=== PATIENT | female | born 1990 | race African-American/Black ===

== ENCOUNTER 2020-10-25 17:22 | Emergency (ER) | payer OTHER, SELFPAY ==
[2020-10-25 17:54] VITALS: BP 122/77; PULSE 75; RESP 18; TEMP 36.7; O2SAT 99; BMI 18.8
--- NOTE | 2020-10-25 20:04 | ED.ANIMALBIT ---
HPI - Animal Bite General Chief Complaint: Animal Bite Stated Complaint: dog bite Time Seen by Provider: 10/25/20 20:04 Source: patient Mode of arrival: ambulatory Limitations: no limitations History of Present Illness HPI narrative: 29 y/o female presenting with superficial dog bite to her lower lip by her friend's dog last night at 10pm. She reports she thinks the bite went through and through her bottom lip but when she woke up this morning it was no longer patent. She has some lower lip swelling still. No fever or chills. She is not up to date on her tetanus shot. She reports the dog is up to date on all of his shots. complaint: animal bite Onset (ago): day(s) (1) Animal: dog Description of animal: household pet Mechanism: bite Location: face Pain description: dull Severity scale (1-10): 4 Context: playing with animal Associated symptoms: none Treatments prior to arrival: irrigation Related Data Previous Rx's Medication Instructions Recorded amoxicillin 875 mg-potassium 1 tab PO BID #10 tab 10/25/20 clavulanate 125 mg tablet (Augmentin) Allergies Allergy/AdvReac Type Severity Reaction Status Date / Time No Known Allergies Allergy Verified 10/25/20 17:54 Review of Systems Review of Systems: Constitutional: No Fever, No Chills ENT/Mouth: No sore throat, No dental trauma Eyes: No Eye Pain, No Swelling, No Redness Cardiovascular: No Chest Pain, No SOB Respiratory: No Cough, No Sputum Gastrointestinal: No Nausea, No Vomitin Skin: + Skin Lesions, No rash Neuro: No Weakness, No Numbness, No Dizziness, No Headache Heme/Lymph: No Bruising PMFSH Past Medical History Attestation statement: The following information was validated with the patient. Medical History No pertinent past medical history Social History Social History Advance Directives: No Advance Directives Information Provided: Yes Patient : No Physical Exam Vital Signs: Vital Signs: Last Vital Signs Temp 98.0 F 10/25/20 17:54 Pulse 75 10/25/20 17:54 Resp 18 10/25/20 17:54 BP 122/77 10/25/20 17:54 Pulse Ox 99 10/25/20 17:54 Body Mass Index 18.8 Appearance: Alert. Oriented X3. No acute distress. HEENT: left lower lip with mild swelling externally and moderate swelling inside the mouth, 1cm superficial laceration with no visible through and through. 2 small superficial scratches on the left chin and right lower mandible. full jaw ROM, no trismus. no surrounding erythema or warmth. no dental trauma. CVS: Normal heart rate and rhythm. Pulses normal. Respiratory: No respiratory distress. Skin: Skin warm and dry. Normal skin color. Normal skin turgor. No rashes. Extremities: atraumatic, no bites or scratches on the extremities. Neuro: Oriented X 3. No motor deficit. No sensory deficit. Course Course Course Narrative: 29 yo female presenting with superficial dog bite to the left lower lip. Most of the bit was inside of her mouth and is already improved since last night and healing. No wounds require repair at this time. We will give Tdap and cover with augmentin to help prevent infection. Local wound care and concerning signs and symptoms reviewed. Stable for d/c home. Discharge Plan Discharge Clinical Impression: Dog bite Qualifiers: Encounter type: initial encounter Qualified Code(s): W54.0XXA - Bitten by dog, initial encounter Patient Disposition: Home, Self-Care Instructions: Animal Bite (ED) Additional Instructions: Use warm salt water gargles as needed for mouth discomfort. Take Motrin and/or Tylenol as needed for pain. Take the prescribed antibiotic to help prevent infection. If you develop new or worsening symptoms call 911 or come back to the ER for further evaluation. Prescriptions: New amoxicillin-pot clavulanate [Augmentin] 875-125 mg tablet 1 tab PO BID Qty: 10 RF: 0
[2020-10-25] MEDS: Diphth,Pertus(ACell),Tet Adult 0.5 ML SYRINGE IM (20:26)
[2020-10-25] MEDS: Amoxicillin/Potassium Clav 875 MG TABLET PO (20:26)
== END 2020-10-25 20:19 | disposition home or self-care (01) ==
PROVIDERS: Emergency Provider Emergency Medicine
DX: S00.571A Other superficial bite of lip, initial encounter (principal); W54.0XXA Bitten by dog, initial encounter; Y93.9 Activity, unspecified; Y92.019 Unspecified place in single-family (private) house as the place of occurrence of the external cause; Y99.9 Unspecified external cause status
CPT/HCPCS: 90471; 90715; 99283; 99284